=== PATIENT | female | born 1945 | race Caucasian/White ===

== ENCOUNTER → 2016-07-01 | Outpatient (CLI) | payer OTHER ==
[~2016-07-01] MED LIST: ACET-1138 PO; ATOR10TA88 PO; CALC-51 PO; CITA20TA4 PO; CLB200 PO; HYDR12.55 PO; LORA-741 PO; LOSA1TAB38 PO; METO50TA7 PO; MULT-506 PO; OXYSR10 PO; RXC5 PO; VITAMIN C PO; XRL10 PO
--- NOTE | 2016-07-01 14:55 | MAMMOGRAPHY REPORT ---
BILATERAL DIGITAL SCREENING MAMMOGRAM WITH CAD: 07/01/2016 CLINICAL HISTORY: Routine screening. Patient has no complaints. TECHNIQUE: Bilateral CC and MLO views were obtained. Current study was also evaluated with a Comput er Aided Detection (CAD) system. COMPARISON: Comparison is made to exams dated: 06/28/2015 mammogram, 06/21/2013 mammogram, 06/22/2014 mammogram, 06/18/2012 mammogram, 06/12/2011 mammogram, and 06/07/2010 mammogram - [facility]. BREAST COMPOSITION: The tissue of both breasts is almost entirely fatty. FINDINGS: There is a stable intramammary lymph node in the right upper outer quadrant. A few stabl e benign-appearing punctate microcalcifications. No suspicious mass, architectural distortion or cl uster of microcalcifications is seen. IMPRESSION: ACR BI-RADS CATEGORY 1: NEGATIVE There is no mammographic evidence of malignancy. A 1 year screening mammogram is recommended. The p atient will receive written notification of the results. Approximately 10% of breast cancers are not detected with mammography. A negative mammographic repor t should not delay biopsy if a clinically suggestive mass is present. Enedina Ely M.D. ay/:07/01/2016 09:48:22 Plumber Assistant: Ailyn RODRIGUEZ(Joselin)(M), [facility] letter sent: Normal 1/2 BI-RADS Code: ACR BI-RADS Category 1: Negative
== END | disposition home or self-care (01) ==
LOC: C.MAMM 08:18
PROVIDERS: ATTEND Obstetrics & Gynecology
DX: Z12.31 Encounter for screening mammogram for malignant neoplasm of breast (principal)

== ENCOUNTER → 2016-09-17 | Outpatient (CLI) | payer OTHER ==
[~2016-09-17] MED LIST changes: +ATOR10TA82 PO; -ATOR10TA88 PO
--- NOTE | 2016-09-18 06:44 | SPLIT NIGHT TECHNICIAN REPORT ---
[facility] Split Night Polysomnogram - Armature Winder Report Study date: 09/17/2016 Referring Physician: PONCE FERNANDO M.D. Name: CHRISTOS LOPEZ Armature Winder: DENISE Aguirre. Date of : 1945 Height: 71 years, Height 5' 3" Sex: Female Weight: 221.6 lbs Age: 71 BMI: Medications: 39.25 Citalopram, Atorvastatin, Prilosec, HCTZ, Losartan, Metoprolol, Acetaminophen, Celebrex, Ondansetron, Oxycodone Patient History 71 yr. old female here for a possible split night sleep study in room 6. Patient has used CPAP in the past with benefit but stopped using it because her cats did not like it. She complains of snoring and EDS. Patients [place] sleepiness scale score is 12/24. Parameters Monitored NPSG: E1-M2, E2-M1, Fp1-M2, Fp2-M1, F3-M2, F4-M2, F4-M1, C3-M2, C4-M2, C4-M1, O1-M2, O2-M2, O2-M1, T3-M2, T4-M1, P3-M2, P4-M1, CHIN1, CHIN2, HR, EKG, Legs, PFLOW, SNOR, FLOW, CFLOW, Tidal Volume, THOR, ABDO, SpO2, PLTH, CPRESS, ETCO2 Wave, ETCO2, pH SLEEP SUMMARY DATA DIAGNOSTIC TREATMENT Lights Out: 9:05:53 PM 12:32:23 AM Lights On: 12:24:53 AM 5:54:53 AM Total Recording Time (TRT): 199.0 min. 323.0 min. Total Sleep Time (TST): 138.0 min. 251.5 min. NREM Time: 101.0 min. 188.5 min. REM Time: 37.0 min. 63.0 min. Sleep Period Time (SPT): 142.0 min. 310.0 min. Sleep Efficiency (SE): 69 % 78 % Sleep Latency: 57.0 min. 12.5 min. Arousal Index: 3.0 6.4 PAP Treatment Levels: 4, 5, 6, 7, 8, 9 * Optimal Pressure(s) SLEEP STAGING DATA DIAGNOSTIC TREATMENT Duration (min) TST % Duration (min) TST % Stage Wake: 61.0 min. -- 71.0 min. -- WASO: 4.0 min. -- 58.5 min. -- NREM: 101.0 min. 73 % 188.5 min. 75 % Stage N1: 4.5 min. 3 % 30.0 min. 12 % Stage N2: 48.0 min. 35 % 106.5 min. 42 % Stage N3: 48.5 min. 35 % 52.0 min. 21 % REM: 37.0 min. 27 % 63.0 min. 25 % POSITIONAL DATA Event Count Index Event Count Index Supine: N/A N/A 27 6.6 Supine NREM: N/A N/A 20 6.6 Supine REM: N/A N/A 7 7 Non-Supine: 51 22.2 3 20.0 Non-Supine NREM: 9 5.3 3 20.0 Non-Supine REM: 42 68.1 N/A N/A AROUSAL SUMMARY DATA: Event Count Index Event Count Index Apnea Arousals: 6 7.0 0 0.2 Hypopnea Arousals: 1 0.4 4 1.0 Snore Arousals: 1 0.4 2 0.5 PLM Arousals: 0 0.0 4 1.0 Non-Specific Arousals: 0 0.0 5 1.2 Total Arousals: 7 3.0 27 6.4 MYOCLONUS (PLM) Event Count Index Event Count Index PLM: 4 1.7 24 5.7 PLM AROUSAL: 0 0.0 4 1.0 PLM W/O AROUSAL 4 1.7 20 4.8 PLM W/RESP EVENT 0 0.0 3 0.0 MYOCLONUS (PLM) Event Count Index Event Count Index LM: 0 9.6 16 3.8 LM AROUSAL: 0 0.0 13 3.1 LM W/O AROUSAL LM W/RESP EVENT LM NON SPECIFIC 17 7.4 19 4.5 HEART RATE DATA DIAGNOSTIC TREATMENT Sleep (bpm): 89 87 REM (bpm): 87 90 NREM (bpm): 89 91 Tachycardia Count: 0 0 Tachycardia Duration: 0.00 0 Bradycardia Count: 0 0 Bradycardia Duration: 0.00 0 DIAGNOSTIC PORTION TREATMENT PORTION RESPIRATORY DATA Event Count Index Event Count Index AHI: -- 22.2 -- 6.9 RDI: -- 22.2 -- 7 Obstructive Apnea: 16 7.0 1 0.2 Central Apnea: 0 0.0 0 0.0 Mixed Apnea: 0 0.0 0 0.0 Hypopnea: 35 15.2 28 6.7 RERA: 0 0.0 1 0.2 Total Apneas: 16 7.0 1 0.2 RESPIRATORY DATA REM NREM SLEEP REM NREM SLEEP Supine Position: Obstructive Apneas: N/A N/A N/A 0 1 1 Central Apneas: N/A N/A N/A 0 0 0 Mixed Apneas: N/A N/A N/A 0 0 0 Hypopneas: N/A N/A N/A 7 19 26 RERA N/A N/A N/A 0 0 0 Total Supine Events: N/A N/A N/A 7 20 27 Supine AHI: N/A N/A N/A 7 6.6 6.6 Supine RDI: N/A N/A N/A 6.7 6.6 6.6 REM NREM SLEEP REM NREM SLEEP Non-Supine Position: Obstructive Apneas: 16 0 16 N/A 0 0 Central Apneas: 0 0 0 N/A 0 0 Mixed Apneas: 0 0 0 N/A 0 0 Hypopneas: 26 9 35 N/A 2 2 RERA 0 0 0 N/A 1 1 Total Supine Events: 42 9 51 N/A 3 3 Supine AHI: 68.1 5.3 22.2 N/A 20.0 20.0 Supine RDI: 68.1 5.3 22.2 N/A 30.0 30.0 OXYGEN DESTAURATION DATA: Event Count Index Event Count Index REM Desaturations: 39 63.2 12 11.4 NREM Desaturations: 11 6.5 45 14.3 SNORE DATA DIAGNOSTIC TREATMENT Snore Time: 18.0 12:44:53 AM Snore TST%: 5 2 Snore Arousal Count: 1 2 Snore Arousal Index: 0.4 0.5 Desaturation Event Summary: Minimum %SpO2 Event Count Mean/Min/Max Duration(sec.) Desaturation Index % Time In Bed > 90 141 24.6 / 7.5 / 58.8 35.6 46.1 86 - 90 26 20.8 / 8.0 / 41.5 6.0 50.3 81 - 85 3 23.0 / 7.0 / 34.8 20.1 1.7 76 - 80 0 N/A 0.0 0.8 71 - 75 0 N/A 0.0 0.7 66 - 70 0 N/A 0.0 0.4 61 - 65 0 N/A 0.0 0.0 56 - 60 0 N/A 0.0 0.0 51 - 55 0 N/A 0.0 0.0 < 50 0 N/A 0.0 0.0 OXYGEN SATURATION DATA DIAGNOSTIC TREATMENT SpO2 Mean Sleep: 88 % 91 % SpO2 Mean REM: 87 % 90 % SpO2 Mean NREM: 89 % 91 % SpO2 Minimum Sleep: 65 % 83 % SpO2 Minimum REM: 65 % 86 % SpO2 Minimum NREM: 66 % 83 % Time Below 90% (TST): 83.3 76.1 Time Below 88% (TST): 20.0 4.1 Total REM NREM Awake <50% 0.0 min. 0.0 min. 0.0 min. 0.0 min. 51 - 60% 0.0 min. 0.0 min. 0.0 min. 0.0 min. 61 - 70% 2.1 min. 1.4 min. 0.6 min. 0.1 min. 71 - 80% 7.6 min. 7.0 min. 0.3 min. 0.4 min. 81 - 90% 268.5 min. 48.3 min. 184.6 min. 35.6 min. 91 - 100% 237.6 min. 43.3 min. 104.1 min. 90.2 min. Average 90 89 90 92 Minimum SpO2 65 65 66 70 Desaturation Event Index 17.4 30.6 11.6 20.5 # Desat. Events below 89% 109 46 33 30 Time(%) with Saturation below 89% 14.9 5.1 8.0 1.8 Time(min.) with Saturation below 89% 76.7 26.3 41.3 9.1 Recording Armature Winder Comments: Mrs. Lopez slept in the right, left, and supine positions. No cardiac arrhythmia or PLMs noted. No bruxism noted. Snoring was noted and scored as a 2 on a scale of 0 through 5. (0=no snoring, 5=snoring loud enough to be heard through a closed door or down the franco way) At 12:32 am, Mrs. Lopez has met specific Split-Night criteria (significant desaturations) during the diagnostic portion of this study. CPAP was initiated at +4 CMH2O room air and up-titrated to an optimal level of +9 CMH2O Cflex 2, which nearly eliminated all respiratory events and snoring. A standard ResMed soft edge mirage nasal mask, was used during titration. Mrs. Lopez awoke to use the restroom once during the night. Mrs. Lopez stated, I was up a lot. The final report will be interpreted and signed by a sleep physician. The completed physician report will then be placed in the patient medical record. Therapy Event: Therapy (cm H20) 0 4 5 6 7 8 9 Total Time at Pressure (min.) 199.0 95.6 76.5 19.9 57.0 25.2 48.5 TST at Pressure (min.) 138.0 34.6 75.5 19.4 56.0 25.2 41.0 # Periods 1 1 1 1 1 1 1 Sleep Onset (min.) 57.0 12.5 0.0 0.0 0.0 0.0 0.0 REM Onset (min.) 158.5 N/A 55.9 0.0 N/A 20.1 0.0 Sleep Efficiency % 69 36 98 97 98 100 84 Wakefulness (%) 30.7 63.8 1.3 2.5 1.8 0.0 15.5 Wakefulness (min.) 61.0 61.0 1.0 0.5 1.0 0.0 7.5 NREM 1 (%) 2.3 16.2 2.6 7.6 8.8 6.0 9.3 NREM 1 (min.) 4.5 15.5 2.0 1.5 5.0 1.5 4.5 NREM 2 (%) 24.1 14.6 20.9 22.1 71.9 74.1 25.8 NREM 2 (min.) 48.0 14.0 16.0 4.4 41.0 18.6 12.5 NREM 3 (%) 24.4 5.3 48.3 0.0 17.5 0.0 0.0 NREM 3 (min.) 48.5 5.1 36.9 0.0 10.0 0.0 0.0 REM (%) 18.6 0.0 26.8 67.9 0.0 19.9 49.5 REM (min.) 37.0 0.0 20.5 13.5 0.0 5.0 24.0 # Arousals 7 9 2 2 7 4 3 Arousal Index 3.0 15.6 1.6 6.2 7.5 9.5 4.4 # Snore 1,227 10 46 7 109 4 3 Snore Index 533.5 17.4 36.6 21.7 116.8 9.5 4.4 AHI 22.2 17.4 5.6 3.1 6.4 4.8 4.4 AHI Supine N/A 16.8 5.6 3.1 6.4 4.8 4.4 AHI Non-Supine 22.2 20.0 N/A N/A N/A N/A N/A NREM AHI 5.3 17.4 4.4 10.2 6.4 3.0 0.0 REM AHI 68.1 N/A 8.8 0.0 N/A 12.0 7.5 RDI 22.2 19.1 5.6 3.1 6.4 4.8 4.4 # Obstructive 16 1 0 0 0 0 0 # Central Ap 0 0 0 0 0 0 0 # Mixed 0 0 0 0 0 0 0 # Hypopneas 35 9 7 1 6 2 3 RERAS 0 1 0 0 0 0 0 Total Respiratory Events 51 11 7 1 6 2 3 Time Below SpO2 89.00% (min.) 46.9 3.6 13.3 0.3 0.3 1.0 2.2 Mean NREM SpO2 (%) 89 90 89 92 92 90 92 Mean REM SpO2 (%) 87 N/A 90 92 N/A 90 90 Mean Sleep SpO2 (%) 88 90 89 92 92 90 91 Min NREM SpO2 (%) 66 83 85 88 87 89 88 Min REM SpO2 (%) 65 N/A 86 89 N/A 86 87 Position Supine (min.) 0.0 28.6 75.5 19.4 56.0 25.2 41.0 Position Non-supine (min.) 138.0 6.0 0.0 0.0 0.0 0.0 0.0 LM Index Sleep 11.3 27.8 3.2 24.8 4.3 9.5 5.9 LM Index NREM 1.8 27.8 4.4 61.2 4.3 8.9 7.1 LM Index REM 37.3 N/A 0.0 8.9 N/A 12.0 5.0 Mean Heart Rate (bpm) 89 87 92 91 84 83 83 Min Heart Rate (bpm) 80 76 81 81 68 65 71
--- NOTE | 2016-09-18 13:41 | POLYSOMNOGRAPH REPORT ---
CLINICAL DATA: This is a 71-year-old female with a BMI 39.25, referred by Dr. Scott Dale for a split-night sleep study. She used CPAP in the past but stopped using it because her cats did not like it. She does have snoring and excessive daytime sleepiness. Her [place] Sleepiness score is elevated at 12/24. SLEEP ARCHITECTURE: For the diagnostic portion of the study, total sleep period was 142 minutes. Total sleep time was 138 minutes divided between 101 minutes of non-REM sleep and 37 minutes of REM sleep. Sleep onset latency was delayed at 57 minutes. Sleep efficiency was 69%. Arousal index was 3. Sleep consisted of stage N1 3%, N2 35%, N3 35%, REM 27%. For the treatment portion of the study, total sleep period was 310 minutes. Total sleep time was 251.5 minutes divided between 188.5 minutes of non-REM sleep and 63 minutes of REM sleep. Sleep latency was 12.5 minutes. Sleep efficiency was 78%. Arousal index was 6.4. Sleep consisted of stage N1 12%, N2 42%, N3 21%, REM 25%. AROUSAL DATA: Prior to treatment, 7 arousals were noted for an index of 3 per hour. With treatment, 27 arousals were recorded for an index of 6.4 per hour. PLM DATA: Prior to treatment, 17 limb movements during sleep were noted for an index of 7.4 per hour. During treatment, 19 limb movements during sleep were noted for an index of 4.5 per hour. EKG: Heart rates ranged from 87-91 beats per minute. No arrhythmias were noted. RESPIRATORY DATA: Prior to treatment, moderate sleep apnea was documented. The AHI was 22.2. There were 16 obstructive apneic episodes and 35 hypopneic episodes. The average AHI with treatment was 6.9. There was 1 obstructive apneic episode and 28 hypopneic episodes. OXIMETRY DATA: Significant nocturnal hypoxemia was seen prior to treatment. Oxygen cheli was 65% during REM prior to treatment. Mean saturation with treatment was 91%. PEDIATRIC CNS'S COMMENTS: The patient slept in the right, left, and supine positions. Snoring was mild, rated 2 on a scale of 1-5. At 12:32 a.m., the patient met split-night criteria and was started on CPAP. She was titrated up to an optimum level of 9 cm of water, C-Flex 2 with the standard ResMed soft edge Mirage nasal mask. At her final pressure setting, the patient slept for 41 minutes with an AHI of 4.4. IMPRESSION: Moderate obstructive sleep apnea/hypopnea, corrected with CPAP 9 cm of water pressure, C-Flex 2, standard ResMed soft edge Mirage nasal mask. RECOMMENDATIONS: The patient should be started on the above-noted treatment regimen and seen back in followup within 90 days to document efficacy and compliance. MTDD
== END | disposition home or self-care (01) ==
LOC: C.NEUR 20:00
PROVIDERS: ATTEND Internal Medicine Geriatric Medicine
DX: G47.33 Obstructive sleep apnea (adult) (pediatric) (principal)

== ENCOUNTER → 2017-01-15 | Outpatient (CLI) | payer OTHER ==
[~2017-01-15] MED LIST changes: -ATOR10TA82 PO; +ATOR10TA88 PO
[2017-01-15 12:20] LABS: HEMATOCRIT 35.5 % (37-47); MEAN CELL VOLUME 85.3 fL (80-100); MEAN CORPUSCULAR HEMOGLOBIN 27.4 pg (25-34); MEAN CORPUSCULAR HGB CONC 32.1 g/dl (32-36); MEAN PLATELET VOLUME 10.3 fL (7.4-10.4); PLATELET COUNT 254 K/uL (130-400); RED BLOOD COUNT 4.16 M/uL (4.2-5.4); WHITE BLOOD COUNT 6.22 K/uL (4.8-10.8)
[2017-01-15 12:59] LABS: ALT/SGPT 36 U/L (12-78); AST/SGOT 28 U/L (15-37); BLOOD UREA NITROGEN 18 mg/dl (7-18); BUN/CREATININE RATIO 28.6 (10-20); CALCIUM 9.3 mg/dl (8.5-10.1); CARBON DIOXIDE 30 mmol/L (21-32); CHLORIDE 104 mmol/L (98-107); CHOLESTEROL 213 mg/dl (0-200); CREATININE 0.63 mg/dl (0.60-1.20); GLUCOSE 106 mg/dl (70-99); POTASSIUM 3.9 mmol/L (3.5-5.1); SODIUM 140 mmol/L (136-145); TRIGLYCERIDES 268 mg/dl (0-150); VERY LOW DENSITY LIPOPROT CALC 54 mg/dl
--- NOTE | 2017-01-15 13:05 | DIAGNOSTIC IMAGING REPORT ---
PA CHEST WITH RIGHT-SIDED RIB SERIES CLINICAL HISTORY: Fall with right-sided chest wall pain. FINDINGS: A PA chest radiograph with 6 additional views may right-sided rib series is compared to study dated 11/06/2015. The heart is enlarged and there is atherosclerotic calcification of the thoracic aorta. The pulmonary vasculature is noncongested. Chronic interstitial thickening and elevation of the left hemidiaphragm is similar to previous. There is minimal left basilar atelectasis. No airspace consolidation, large pleural effusion, or pneumothorax is seen. The skeletal structures are osteopenic. There is no radiographic evidence of right-sided rib fracture on the rib series as clinically queried. The remainder of the bony thorax is grossly intact. Degenerative change is seen throughout the thoracic spine. IMPRESSION: 1. Cardiomegaly with no acute cardiopulmonary abnormality. 2. There is no radiographic evidence of right-sided rib fracture as clinically queried. Electronically signed by: Juan J Mills M.D. 01/15/2017 1:03 PM Dictated Date/Time: 01/15/2017 1:01 PM
--- NOTE | 2017-01-15 13:05 | DIAGNOSTIC IMAGING REPORT ---
L-SPINE MIN 4 VIEWS ROUTINE HISTORY: Pain M54.9 Mid back pain COMPARISON: None. FINDINGS: There is no fracture. Mild scoliosis. Moderate degenerative disc change from L3 through L5. Moderate reactive anterior osteophyte summation. Posterior elements appear intact. No evidence for subluxation. IMPRESSION: Scoliosis. Moderate degenerative disc change from L3 through L5. No acute process. The above report was generated using voice recognition software. It may contain grammatical, syntax or spelling errors. Electronically signed by: Arsen Duran M.D. 01/15/2017 1:03 PM Dictated Date/Time: 01/15/2017 1:02 PM
--- NOTE | 2017-01-15 13:07 | DIAGNOSTIC IMAGING REPORT ---
THORACIC SPINE 3 VIEWS ROUTINE HISTORY: Pain M54.9 Mid back pain COMPARISON: None. FINDINGS: Considerable degenerative disc changes throughout. Slight concave deformity superior endplate T12 and T8 felt to be old radiographically. No acute compression deformity. No subluxation. Disc spaces are preserved. IMPRESSION: Considerable degenerative disc change. No acute bony abnormality. The above report was generated using voice recognition software. It may contain grammatical, syntax or spelling errors. Electronically signed by: Arsen Duran M.D. 01/15/2017 1:05 PM Dictated Date/Time: 01/15/2017 1:04 PM
[2017-01-15 13:10] LABS: ALB/GLOB RATIO 1.1 (0.9-2); ALKALINE PHOSPHATASE 69 U/L (45-117); CHOLESTEROL/HDL RATIO 3.2; HDL CHOLESTEROL 67 mg/dl; LDL CHOLESTEROL CALCULATED 92 mg/dl
[2017-01-15 13:25] LABS: BASO % 0.3 %; BASO ABS # 0.02 K/uL (0-0.2); COMPLETE YES; EOS % 1.6 %; IG% 0.2 %; LYMPH % 51.3 %; LYMPH ABS # 3.19 K/uL (1.2-3.4); MONO % 11.3 %; NEUT % 35.3 %
[2017-01-15 13:28] LABS: ESTIMATED AVERAGE GLUCOSE 126 mg/dl; HA1C FLAG Normal (Normal)
== END | disposition home or self-care (01) ==
LOC: C.RAD 11:10
PROVIDERS: ATTEND Physician Assistant
DX: I10 Essential (primary) hypertension (principal); E78.5 Hyperlipidemia, unspecified; R73.9 Hyperglycemia, unspecified; M54.9 Dorsalgia, unspecified

== ENCOUNTER → 2017-07-04 | Outpatient (CLI) | payer OTHER ==
[~2017-07-04] MED LIST changes: +ATOR10TA82 PO; -ATOR10TA88 PO
--- NOTE | 2017-07-04 15:08 | MAMMOGRAPHY REPORT ---
BILATERAL DIGITAL SCREENING MAMMOGRAM TOMOSYNTHESIS WITH CAD: 07/04/2017 CLINICAL HISTORY: Routine screening. Patient has no complaints. TECHNIQUE: Breast tomosynthesis in addition to standard 2D mammography was performed. Current study was also evaluated with a Computer Aided Detection (CAD) system. COMPARISON: Comparison is made to exams dated: 07/01/2016 mammogram, 06/28/2015 mammogram, 06/22/2014 ma mmogram, 06/21/2013 mammogram, 06/18/2012 mammogram, and 06/12/2011 mammogram - [facility]. BREAST COMPOSITION: The tissue of both breasts is almost entirely fatty. FINDINGS: No suspicious masses, calcifications, or areas of architectural distortion are noted in ei ther breast. There has been no significant interval change compared to prior exams. There is a stabl e intramammary lymph node in the right upper outer quadrant. IMPRESSION: ACR BI-RADS CATEGORY 2: BENIGN There is no mammographic evidence of malignancy. A 1 year screening mammogram is recommended. The pa tient will receive written notification of the results. Approximately 10% of breast cancers are not detected with mammography. A negative mammographic report should not delay biopsy if a clinically suggestive mass is present. Arelis Zapien M.D. /:07/04/2017 12:17:17 Motor Vehicle Technician: Ailyn MINER)(Allyson), [facility] letter sent: Normal 1/2 BI-RADS Code: ACR BI-RADS Category 2: Benign
== END | disposition home or self-care (01) ==
LOC: C.MAMM 08:15
PROVIDERS: ATTEND Internal Medicine Geriatric Medicine
DX: Z12.31 Encounter for screening mammogram for malignant neoplasm of breast (principal)

== ENCOUNTER → 2017-07-29 | Outpatient (CLI) | payer OTHER ==
[~2017-07-29] MED LIST changes: -METO50TA7 PO; +METO50TA8 PO
[2017-07-29 17:57] LABS: BASO % 0.3 %; BASO ABS # 0.02 K/uL (0-0.2); EOS % 0.7 %; EOS ABS # 0.05 K/uL (0-0.5); HEMATOCRIT 35.6 % (37-47); HEMOGLOBIN 11.7 g/dL (12.0-16.0); IG# 0.02 K/uL (0.00-0.02); LYMPH % 44.6 %; LYMPH ABS # 3.03 K/uL (1.2-3.4); MEAN CELL VOLUME 85.2 fL (80-100); MEAN CORPUSCULAR HGB CONC 32.9 g/dl (32-36); MEAN PLATELET VOLUME 10.9 fL (7.4-10.4); MONO ABS # 0.68 K/uL (0.11-0.59); NEUT % 44.1 %; NEUT ABS # 2.99 K/uL (1.4-6.5); PLATELET COUNT 258 K/uL (130-400); RED CELL DISTRIBUTION WIDTH CV 14.7 % (11.5-14.5); WHITE BLOOD COUNT 6.79 K/uL (4.8-10.8)
[2017-07-29 18:18] LABS: BLOOD UREA NITROGEN 16 mg/dl (7-18); CALCIUM 9.4 mg/dl (8.5-10.1); CARBON DIOXIDE 28 mmol/L (21-32); CREATININE 0.73 mg/dl (0.60-1.20); GLUCOSE 84 mg/dl (70-99); POTASSIUM 3.5 mmol/L (3.5-5.1); SODIUM 136 mmol/L (136-145)
== END | disposition home or self-care (01) ==
LOC: C.LABBFT 11:34
PROVIDERS: ATTEND Internal Medicine Geriatric Medicine
DX: I10 Essential (primary) hypertension (principal); R73.9 Hyperglycemia, unspecified; D64.9 Anemia, unspecified

== ENCOUNTER → 2017-09-03 | Outpatient (CLI) | payer OTHER | END | disposition home or self-care (01) | LOC: C.PATHSPEC 17:48 | PROVIDERS: ATTEND Surgery | DX: L72.0 Epidermal cyst (principal) ==